=== PATIENT | female | born 1985 | race Caucasian/White ===

== ENCOUNTER 2016-12-24 17:28 | Emergency (ER) | payer OTHER ==
[~2016-12-24] VITALS: Ht 165.1 cm; Wt 71.9 kg
[~2016-12-24 17:28] MED LIST: CHROMAGEN,1 CAPSULE PO; Feosol PO; IBUPROFEN800 MG PO; MOTRIN600 MG PO; PRENATAL TABLE1 EAC3 PO
[2016-12-24 17:51] VITALS: BP 138/89
[2016-12-24 18:22] LABS: MCH 27.7 PG (29.0-34.0); MCHC 32.1 G/DL (30.0-36.0); MCV 86.1 FL (83-99); MEAN PLAT.VOLUME 10.1 uM^3 (9.5-12.4); PLATELET COUNT 245 K/uL (156-360); RBC DIS.WIDTH-CV 13.2 % (11.8-14.6); RBC DIS.WIDTH-SD 41.8 % (39-53); RED BLOOD COUNT 4.88 M/uL (3.80-5.20); WHITE BLOOD COUNT 8.4 K/uL (4.1-10.2)
[2016-12-24 18:32] LABS: CHLORIDE 108 mEq/L (99-109); POTASSIUM 4.3 mEq/L (3.7-5.4); SODIUM 138 mEq/L (136-147)
[2016-12-24 18:34] LABS: GLUCOSE 106 mg/dL (70-99)
[2016-12-24 18:35] LABS: ANION GAP 9 MEQ/L (2-14)
[2016-12-24 18:37] LABS: GFR ESTIMATE (CALCULATED) > 59 mL/min/
[2016-12-24 18:38] LABS: UREA NITROGEN (BUN) 11 mg/dL (9-23)
[2016-12-24] MEDS ORDERED: NAPROXEN500 MG PO (18:41)
[2016-12-24 18:42] LABS: TROP-I INTERPRETATION NEGATIVE; TROPONIN-I < 0.01 ng/mL (0.0-0.30)
== END 2016-12-24 19:07 | disposition home or self-care (01) ==
LOC: EME 17:28
PROVIDERS: Emergency Medicine
DX: S29.011A Strain of muscle and tendon of front wall of thorax, initial encounter (principal); X50.9XXA Other and unspecified overexertion or strenuous movements or postures, initial encounter
CPT/HCPCS: 71101; 80048; 84484; 85027; 93005; 99281; 99284